=== PATIENT | male | born 1955 | race Caucasian/White ===

== ENCOUNTER → 2016-07-29 | Outpatient (CLI) | payer BC | END | disposition home or self-care (01) | LOC: GMAJ 10:25 | PROVIDERS: ATTEND Family Medicine | DX: Z00.00 Encounter for general adult medical examination without abnormal findings (principal) ==

== ENCOUNTER → 2017-08-12 | Outpatient (CLI) | payer BC | LOC: GMAJ 11:10 | PROVIDERS: ATTEND Family Medicine | DX: Z12.5 Encounter for screening for malignant neoplasm of prostate (principal) ==

== ENCOUNTER → 2017-11-12 | Outpatient (CLI) | payer BC ==
--- NOTE | 2017-11-12 19:21 | RAD ---
EXAM DESCRIPTION: Elbow,Right 3 Views CLINICAL HISTORY: 61 years Male, PAIN IN RIGHT ELBOW COMPARISON: None available. FINDINGS: The visualized bones are well-mineralized.No acute fracture or dislocation. The soft tissues appear grossly unremarkable. IMPRESSION: Grossly normal radiographs of the right elbow. Electronically signed by: Taiwo Wilson MD 11/12/2017 7:20 PM CDT
== END ==
LOC: RAD 08:30
PROVIDERS: ATTEND Orthopaedic Surgery
DX: M25.521 Pain in right elbow (principal)

== ENCOUNTER 2018-02-10 06:07 | Day surgery (SDC) | payer BC ==
[~2018-02-10 06:07] MED LIST: LACTATED RINGERS 1,000 ML ONE
[2018-02-10] MEDS ORDERED: MIDAZOLAM INJ 2 MG/2 ML VIAL ONE (07:47)
[2018-02-10] MEDS ORDERED: LACTATED RINGERS 1,000 ML IVS ONE (09:15)
[2018-02-10 09:35] VITALS: TEMP 98; O2SAT 94
[2018-02-10] MEDS ORDERED: PROPOFOL 200 MG/20 ML VIAL IV ONE (10:00)
--- NOTE | 2018-02-10 10:43 | OP ---
DATE OF PROCEDURE: 02/10/18 PREPROCEDURE DIAGNOSIS: 1. Average risk screening colonoscopy. Last colonoscopy was 10 years ago. POSTPROCEDURE DIAGNOSIS: 1. Colonic polyp. 2. Diverticulosis. 3. Internal hemorrhoids. PROCEDURE: 1. Colonoscopy with snare polypectomy. SURGEON: Lauro Galavn MD. SEDATION: Monitored anesthesia care. ESTIMATED BLOOD LOSS: Less than 5 mL. PROCEDURE: Informed consent was obtained prior to sedation. The preprocedure cardiopulmonary assessment was satisfactory. The patient was brought to the Endoscopy Suite and placed in the left lateral decubitus position. The patient was then sedated by the anesthesia team. Digital rectal and perianal exams were normal. The tip of the Olympus colonoscope was inserted into the rectum and advanced under direct visualization to the terminal ileum. Preparation of the colon was good. Upon reaching the terminal ileum, the endoscope was slowly withdrawn with careful attention paid to the entire colonic mucosa. In the mid transverse colon, there was an area of polypoid tissue. This was about 6 mm in size. This area was resected with cold snare polypectomy and retrieved for pathology. In the sigmoid colon, there were a few scattered diverticula. Retroflexed view of the anal verge showed small, non-bleeding internal hemorrhoids. The endoscope was then withdrawn from the patient and the procedure terminated. RECOMMENDATION: 1. Discharge the patient home with escort. 2. Resume regular diet. 3. Continue present medications. 4. Followup pathology. 5. Repeat colonoscopy in 5 to 10 years based on pathology results. #[id number] MTDD
[2018-02-10 11:59] VITALS: BP 127/74
== END 2018-02-10 11:50 | disposition home or self-care (01) ==
LOC: AMB 06:07
PROVIDERS: ATTEND Internal Medicine Gastroenterology
DX: Z12.11 Encounter for screening for malignant neoplasm of colon (principal); D12.3 Benign neoplasm of transverse colon; K57.30 Diverticulosis of large intestine without perforation or abscess without bleeding; K64.8 Other hemorrhoids; I10 Essential (primary) hypertension; Z88.6 Allergy status to analgesic agent; Z79.899 Other long term (current) drug therapy
CPT/HCPCS: 00812; 45385; J2250; J3490; J7120

== ENCOUNTER → 2018-11-12 | Outpatient (CLI) | payer BC ==
--- NOTE | 2018-11-12 10:23 | RAD ---
PROVIDED CLINICAL HISTORY/REASON FOR EXAM: M25.561,M25.551 Findings: Number of images: Two Location: Pelvis No acute fracture or dislocation. No focal soft tissue swelling. Mild left and moderate right hip osteoarthritis. Sacroiliac joint spaces are maintained. Pelvic phleboliths. IMPRESSION: No evidence of acute osseous abnormality in the pelvis. Electronically signed by: Go Cotter MD 11/12/2018 10:21 AM CDT
--- NOTE | 2018-11-12 10:24 | RAD ---
EXAM DESCRIPTION: Knee,Right Complete CLINICAL HISTORY: 62 years, Male, M25.561,M25.551 COMPARISON: None TECHNIQUE: Four views of the right knee FINDINGS: No acute displaced fracture or dislocation is seen. Moderate tricompartmental knee joint osteoarthrosis is present with joint space narrowing, subchondral sclerosis and marginal osteophyte formation, slightly more pronounced at the medial knee compartment. The joint spacing and alignment of the knee is intact. No significant knee joint effusion. The soft tissues are unremarkable. IMPRESSION: 1. No right knee displaced fracture or dislocation. 2. Moderate right knee osteoarthrosis. Electronically signed by: Aleksandr Capps DO 11/12/2018 10:22 AM CDT
== END ==
LOC: RAD 08:54
PROVIDERS: ATTEND Orthopaedic Surgery
DX: M17.11 Unilateral primary osteoarthritis, right knee (principal); M25.551 Pain in right hip

== ENCOUNTER → 2018-11-29 | Outpatient (CLI) | payer BC ==
--- NOTE | 2018-11-29 11:42 | MRI ---
EXAM DESCRIPTION: Lumbar Spine w/o Contrast : Magnetic Resonance Imaging. CLINICAL HISTORY: RADICULOPATHY COMPARISON: None. TECHNIQUE: Multiplanar, multiple standard sequences, non contrast MRI, lumbar spine. FINDINGS: L5-S1: The disc is well visualized on axial T2 series 501, image 3. Moderate disc space loss more to the left of midline. Moderate endplate reactive changes anterior and to the left of midline. Disc osteophyte complex encroaching on the left foramen and the left L5 nerve. Moderate narrowing right neural foramen. Left posterior lateral disc bulge impressing on the left S1 nerve above the subarticular recess. Mild left paracentral canal narrowing. Minimal bilateral facet hypertrophic arthrosis and posterior flavum ligament thickening. L4-5: Normal signal in the disc with disc space preserved and no bulging. Bilateral hypertrophic facet arthrosis and ligament thickening. AP canal diameter 12 mm. Bilateral moderate foraminal narrowing more on the right. L3-L4: Normal signal in the disc with minimal posterior disc bulge. Hyperintense T2 signal indicating posterior midline annular fissure. Hypertrophic facet arthrosis bilaterally with thickened ligaments. AP canal diameter 12 mm. Bilateral borderline foraminal stenosis. L2-L3: Disc desiccation with anterior and posterior bulging. Mild bilateral hypertrophic facet arthrosis and thickened ligaments. Mild canal narrowing. Posterior left disc protrusion encroaching on the left subarticular recess and the descending left L3 nerve. Bilateral lateral disc bulge and encroachment on the foramina and the bilateral L2 nerveS. Mild to moderate right foraminal narrowing. L1-L2: Normal signal in the disc with disc space preserved. Minimal hypertrophic facet arthrosis and thickening of the ligaments posterior. Canal is patent. Bilateral foramina are patent. T12-L1: Normal signal in the disc with disc space preserved. Posterior elements unremarkable. Canal and foramina are patent. Conus terminates at this level. Anatomic curvature Paravertebral soft tissues negative.. Cord normal signal and caliber. Normal marrow signal in the remaining vertebral bodies and the posterior elements. Vertebral bodies are not compressed at any level. IMPRESSION: 1. Multiple levels of bulging desiccated discs and spondylosis. Multiple levels of hypertrophic facet arthrosis and thickening of the flavum ligaments posterior, with canal narrowing. 2. Moderate spondylosis at L5-S1 more to the left of midline. Left foraminal stenosis and encroachment on the left L5 nerve. Left posterior disc bulge impressing on the left S1 nerve above the left subarticular recess. 3. Bilateral borderline foraminal stenosis from facets and bony margins at L3-L4. 4. Posterior left L2-3 disc protrusion encroaching on the subarticular recess and the descending left L3 nerve. Right lateral disc bulge encroaching on the right L2 nerve in the foramen Electronically signed by: Tyrese Rosas MD 11/29/2018 11:40 AM CDT
== END ==
LOC: MRI 07:01
PROVIDERS: ATTEND Orthopaedic Surgery
DX: M51.16 Intervertebral disc disorders with radiculopathy, lumbar region (principal); M48.062 Spinal stenosis, lumbar region with neurogenic claudication; M47.26 Other spondylosis with radiculopathy, lumbar region; M47.27 Other spondylosis with radiculopathy, lumbosacral region

== ENCOUNTER → 2019-02-03 | Outpatient (CLI) | payer BC | LOC: GMAJ 10:40 | PROVIDERS: ATTEND Family Medicine | DX: N40.1 Benign prostatic hyperplasia with lower urinary tract symptoms (principal); I10 Essential (primary) hypertension ==

== ENCOUNTER → 2019-02-17 | Outpatient (CLI) | payer BC, SELFPAY ==
--- NOTE | 2019-02-17 11:48 | CT ---
EXAM DESCRIPTION: Cardiac Calcium Scoring Screen: Computed Tomography. CLINICAL HISTORY: Coronary Artery Calcium Scoring COMPARISON: None. TECHNIQUE: Spiral-axial scans at 2.5 x 0.4 mm intervals through the coronary arteries without IV contrast. Special algorithm was used, and cardiac gating. No reconstructions. Total Exam DLP: 146.42 mGy-cm. This exam was performed according to our departmental CT dose-optimization program which includes automated exposure control, adjustment of the mA and/or kV according to patient size and/or use of iterative reconstruction technique; to reduce radiation dose to as low as reasonably achievable (ALARA). Some images may have been skipped or repeated due to the heart rhythm or respiration. FINDINGS: The patient has a total Agatston calcium score of 84. This places the patient in the 40th percentile in comparison to a group of patients asymptomatic for coronary artery disease with the same age and gender. This means that 40% of males, ages 61-65 have calcium scores lower than the patient. Majority of the calcium detected in the left main artery. The included mediastinum, bilateral mili, and included reshma-hilar lung shows Pleural-parenchymal scarring also in the inferior lingula.. IMPRESSION: 1. Total coronary artery calcium score of 84. 40th percentile for age and gender. 2. The included mediastinum, lung, and reshma-hilar areas showing minimal pleural-parenchymal scarring.. Electronically signed by: Tyrese Rosas MD 02/17/2019 11:46 AM [facility] [facility]
== END ==
LOC: CT 08:02
PROVIDERS: ATTEND Family Medicine
DX: Z01.818 Encounter for other preprocedural examination (principal); I10 Essential (primary) hypertension

== ENCOUNTER → 2019-03-07 | Outpatient (CLI) | payer BC | LOC: LAB.O 08:10 | PROVIDERS: ATTEND Orthopaedic Surgery | DX: Z01.818 Encounter for other preprocedural examination (principal) ==

== ENCOUNTER 2019-03-15 06:15 | Inpatient (IN) | payer BC ==
[~2019-03-15 06:15] MED LIST changes: +SODIUM CHLORIDE 0.9% 100ML 100 ML IVPB ONE; +SODIUM CHLORIDE 0.9% 250ML 250 ML ONE; +TRANEXAMIC ACID 1,000 MG/10 ML VIAL ONE; +VANCOMYCIN HCL INJ 1,000 MG VIAL IVPB ONE
[2019-03-15] MEDS ORDERED: LACTATED RINGERS 1,000 ML BAG IV ONE (06:28)
[2019-03-15] MEDS ORDERED: SCOPOLAMINE PATCH 1.5MG 1 EA TD ONE ×2 (06:31→06:32)
[2019-03-15] MEDS ORDERED: TRANEXAMIC ACID 1,000 MG/10 ML VIAL IV ONE (06:33)
[2019-03-15] MEDS ORDERED: KETAMINE HCL 100 MG/ML VIAL ONE (06:36)
[2019-03-15] MEDS ORDERED: ACETAMINOPHEN IV 1000MG 100 ML ONE (06:36)
[2019-03-15] MEDS ORDERED: MIDAZOLAM INJ 5 MG/5 ML VIAL ONE (06:36)
[2019-03-15] MEDS ORDERED: HYDROmorphone HCL INJ 2 MG/ML VIAL ONE (06:36)
[2019-03-15] MEDS ORDERED: fentaNYL CITRATE INJ 50 MCG/ML AMP ONE (06:36)
[2019-03-15] MEDS ORDERED: ceFAZolin SODIUM 2 GRAMS PREMI 50 ML IVPB ONE (07:00)
[2019-03-15] MEDS ORDERED: TRANEXAMIC ACID 1,000 MG/10 ML VIAL ONE (07:26)
[2019-03-15] MEDS: BUPIVACAINE 0.5% 30 ML VIAL INJ ONE ×2 (07:46→08:35)
[2019-03-15] MEDS: ceFAZolin SODIUM 1 GM VIAL ONE ×3 (07:46→09:00)
[2019-03-15] MEDS: BUPIVACAINE LIPOSOME 13.3 MG/ML VIAL INJ ONE ×2 (07:46→08:35)
[2019-03-15] MEDS: VANCOMYCIN HCL INJ 1,000 MG VIAL IVPB ONE ×2 (07:47→09:00)
[2019-03-15] MEDS ORDERED: ELECTROLYTE-A 1,000 ML IVS ONE (09:11)
[2019-03-15] MEDS ORDERED: ALUMINUM & MAGNESIUM HYDROXIDE 30 ML UD PO PRN (09:33)
[2019-03-15] MEDS ORDERED: ZOLPIDEM TARTRATE 5 MG TAB PO PRN (09:33)
[2019-03-15] MEDS ORDERED: ACETAMINOPHEN 325 MG TAB PO PRN (09:33)
[2019-03-15] MEDS ORDERED: ONDANSETRON INJ 4 MG/2 ML VIAL IV PRN (09:33)
[2019-03-15] MEDS ORDERED: PROMETHAZINE HCL INJ 25 MG in SODIUM CHLORIDE 0.9% 50ML 50 ML IVPB PRN (09:33)
[2019-03-15] MEDS ORDERED: PROMETHAZINE HCL INJ 12.5 MG in SODIUM CHLORIDE 0.9% 50ML 50 ML IVPB PRN (09:33)
[2019-03-15] MEDS ORDERED: TRANEXAMIC ACID INJ 1,000 MG in SODIUM CHLORIDE 0.9% 100ML 100 ML IVPB ONE (09:33)
[2019-03-15] MEDS ORDERED: BISACODYL SUPPOSITORY 10 MG PR PRN (09:33)
[2019-03-15] MEDS ORDERED: MORPHINE SULFATE INJ 10 MG/ML VIAL IV PRN (09:33)
[2019-03-15] MEDS ORDERED: SODIUM CHLORIDE 0.9% (FLUSH) 10 ML SYG IV PRN (09:33)
[2019-03-15] MEDS ORDERED: MORPHINE SULFATE INJ 10 MG/ML VIAL IM PRN (09:33)
[2019-03-15] MEDS ORDERED: ACETAMINOPHEN 500 MG TAB PO PRN (09:33)
[2019-03-15] MEDS ORDERED: NALOXONE HCL INJ 0.4 MG/ML VIAL IV PRN (09:33)
[2019-03-15] MEDS ORDERED: BENZOCAINE-MENTH LOZ (CEPACOL) 1 EA LOZ MT PRN (09:33)
[2019-03-15] MEDS ORDERED: MAGNESIUM HYDROXIDE 30 ML UD PO PRN (09:33)
--- NOTE | 2019-03-15 09:37 | OP ---
DATE OF PROCEDURE: 03/15/19 PREOPERATIVE DIAGNOSIS: 1. Right knee osteoarthritis. POSTOPERATIVE DIAGNOSIS: 1. Right knee osteoarthritis. PROCEDURE: 1. Total knee arthroplasty. SURGEON: Loc Obregon MD. PELT DROPPER: Tyrese Roberto CST, SA-C. ANESTHESIA: General anesthesia. COMPLICATIONS: None. FINDINGS: Severe osteoarthritis of the knee. INDICATION: Mr. Hoffman has a long history of knee arthritis. He has undergone contralateral total knee arthroplasty. He has requested right knee arthroplasty. After discussing the risks, benefits and alternatives to that, the patient has given informed consent for total knee arthroplasty. PROCEDURE: The patient was brought to the Operating Room and placed in supine position. General anesthesia was induced and the patient's leg was sterilely prepped and draped. Following prepping and draping, the distal femur was exposed and using an intramedullary guide, the distal femoral cut was made. The appropriate sized cutting block was measured, pinned into place, and the anterior, posterior, and chamfer cuts were made. The ACL was transected and the tibia was subluxed. Both the medial and lateral menisci were removed. An intramedullary guide was used to make the proximal tibial cut. The appropriate sized base plate was placed and a trial polyethylene was placed. The trial femur was placed, the knee was reduced, and the knee was taken through a range of motion. The knee was stable in anterior, posterior, varus and valgus stress. The patella tracked anatomically without evidence of subluxation or dislocation. After trialing, the trial components were removed and the bony surfaces were thoroughly irrigated with saline. Following irrigation, the surfaces were dried and the final components were cemented into place. The excess cement was removed and the remaining cement was allowed to cure. The knee was again taken through a range of motion to confirm stability. The wound was then irrigated with saline and closure was performed using PDS to approximate the arthrotomy followed by closure of the subcutaneous tissues with a combination of running and interrupted Monocryl sutures. Sterile dressing was placed. The patient was awoken from anesthesia and taken to Recovery. COMPONENTS: César Triathlon knee, size 7 femur, size 7 tibia, 11 mm insert. POSTOPERATIVE PLAN: The patient will be weight-bearing as tolerated on postoperative day 1. #[id number] MTDD
[2019-03-15] MEDS ORDERED: SODIUM CHLORIDE 0.9% 50 ML VIAL INJ ONE (10:00)
[2019-03-15] MEDS ORDERED: PROPOFOL 200 MG/20 ML VIAL IV ONE (10:00)
[2019-03-15] MEDS ORDERED: MAGNESIUM SULFATE INJ 1 GM/2 ML VIAL IVPB ONE (10:00)
[2019-03-15] MEDS ORDERED: IV SET AND CAP CHANGE INJ INJ SCH (10:00)
[2019-03-15] MEDS ORDERED: EPINEPHrine INJ 0.1 MG/ML 10 ML SYG IV ONE (10:00)
[2019-03-15] MEDS ORDERED: MORPHINE PCA 1 MG/ML 100 ML BAG IVPB SCH (10:00)
[2019-03-15] MEDS ORDERED: raNITIdine HCL INJ 25 MG/ML VIAL IV ONE (10:00)
[2019-03-15] MEDS ORDERED: DEXAMETHASONE INJ 10 MG/ML VIAL IV ONE (10:00)
[2019-03-15] MEDS ORDERED: MORPHINE PCA 1 MG/ML 100 ML BAG IVPB ONE (10:13)
--- NOTE | 2019-03-15 11:59 | RAD ---
Frontal and lateral views of the right knee. Indication: TKA Impression: Postsurgical changes of right total knee arthroplasty and patellar resurfacing noted with associated postsurgical changes of the soft tissues. No complicating features identified. Electronically signed by: Cody Garcia MD 03/15/2019 11:57 AM [facility]
[2019-03-15] MEDS ORDERED: diphenhydrAMINE HCL 50 MG/ML VIAL ONE (12:12)
--- NOTE | 2019-03-15 13:22 | CONS ---
SUPERVISING PHYSICIAN: Francois Guevara MD REASON FOR CONSULTATION: Medical management postoperative right total knee replacement. HISTORY OF PRESENT ILLNESS: Mr. Hoffman is a 63-year-old male patient that has a longstanding history of right knee osteoarthritis with severe pain. He has had multiple attempts with outpatient conservative treatment measures. He has failed to respond to any outpatient measures to have any improvement in his symptoms. He therefore requested an elective total knee arthroplasty for symptom control. The patient was admitted for elective right total knee arthroplasty today. He had no intraoperative complications and was seen in the immediate postoperative state in stable condition. PAST MEDICAL HISTORY: 1. Osteoarthritis affecting the knees. 2. Hypertension. 3. Gastroesophageal reflux disease. 4. Recurrent urinary tract infections. 5. Chronic insomnia. PAST SURGICAL HISTORY: 1. Previous left total knee replacement in 2011. 2. Fracture with repair of the mandible with open reduction internal fixation. HOME MEDICATIONS: 1. Metoprolol succinate 50 mg at bedtime. 2. Tylenol 500 mg p.r.n. 3. Celebrex 1 capsule daily. 4. Trazodone 1 tablet daily. 5. Zolpidem 1 tablet daily. ALLERGIES: DB INHIBITORS, HYDROCODONE, STATINS. FAMILY HISTORY: Both mother and father from emphysema complications. He has one brother who has prostate cancer. He has one daughter who has history of lung cancer. SOCIAL HISTORY: The patient is employed in the [employer] industry. He is . He lives in [place], [place]. He has 3 children. He has never smoked and does not use alcohol or illicit drugs. REVIEW OF SYSTEMS: CONSTITUTIONAL: Negative for any fevers, chills, general malaise, unexplained weight loss or gain. HEENT: Negative for sore throats, earaches, nasal congestion, headaches, vision changes. RESPIRATORY: Denies coughing, wheezing, shortness of breath. CARDIOVASCULAR: Negative for chest pain, palpitations or syncopal episodes. GASTROINTESTINAL: Negative for nausea, vomiting, diarrhea, constipation or abdominal pain. GENITOURINARY: Negative for hematuria, polyuria. MUSCULOSKELETAL: As noted in history of present illness, generalized arthralgias, joint pain, back pain. NEUROLOGIC: Denies headaches, vision changes, syncopal episodes. He does have some chronic insomnia and some difficulty with chronic hearing loss. No ataxia or seizures. SKINS: Denies lesions, rashes, moles or unexplained changes. HEMATOLOGIC: Denies easy bruising, bleeding or transfusion reactions. PHYSICAL EXAMINATION: VITAL SIGNS: Temperature 97.6. Pulse 68. Blood pressure 121/75. Respirations 12. Saturation 99% on 2 liters nasal cannula. GENERAL: The patient is resting comfortably. He is alert, vising with family members. He appears to be in no acute distress. HEENT: Tympanic membranes clear bilaterally. Oropharynx is pink, moist without any lesions. NECK: Supple, nontender with full range of motion. No jugular venous distention noted. RESPIRATORY: Lungs clear to auscultation bilaterally without any rhonchi, wheezes or rales. CARDIOVASCULAR: Regular rate and rhythm without any appreciable murmurs, gallops, or rubs. ABDOMEN: Soft, nontender with hypoactive bowel sounds. EXTREMITIES: The right knee has a bulky Db bandage in place with an Iceman. Capillary refill is brisk with strong pulses bilaterally. NEUROLOGIC: The patient is alert and oriented times three. Cranial nerves II- XII are grossly intact. LABORATORY: Postoperative hemoglobin and hematocrit are pending. ASSESSMENT: 1. Immediate postoperative day 0 for a right total knee arthroplasty with a history of osteoarthritis failing outpatient treatment measures with surgery performed by Dr. Loc Obregon. 2. History of hypertension. 3. Chronic gastroesophageal reflux disease. 4. History of recurrent urinary tract infections. 5. Chronic insomnia. PLAN: We will follow Julio César as he continues with his postoperative recovery with physical therapy and rehabilitation efforts. I will resume his home medications once these have been updated and verified as appropriate to care. He will be on DVT prophylaxis per protocol. We will refer further postoperative surgical management to orthopedic services with Dr. Loc Obregon and physical therapy. I anticipate his length of stay to be at least 2 days with discharging possibly on . Tentative outpatient management plans are through [facility]. Until the patient can transition to outpatient management, we will continue to monitor and treat as needed. #[id number] [facility]
--- NOTE | 2019-03-15 13:57 | RAD ---
EXAM DESCRIPTION: Fluoroscopy Up to 1Hr CLINICAL HISTORY: RIGHT TKA COMPARISON: 12 November 2018 TECHNIQUE: Fluoroscopy time is 0.7 seconds, dose is 0.07 mGy, one spot film. FINDINGS: Exam demonstrates placement of a right total knee arthroplasty. IMPRESSION: Right total knee arthroplasty Electronically signed by: Jeronimo Morales MD 03/15/2019 1:55 PM [facility]
[2019-03-15] MEDS: diphenhydrAMINE HCL 50 MG/ML VIAL IV PRN (14:15)
[2019-03-15] MEDS ORDERED: SODIUM CHLORIDE 0.9% 100ML 100 ML IVPB ONE ×2 (15:29→19:25)
[2019-03-15] MEDS ORDERED: ceFAZolin SODIUM 1 GM VIAL ONE ×2 (15:29→19:25)
[2019-03-15] MEDS: ceFAZolin SODIUM 2 GM in SODIUM CHLORIDE 0.9% 100ML 100 ML IVPB SCH ×2 (15:38→23:00)
[2019-03-15] MEDS: CELECOXIB 100 MG CAP PO SCH (16:21)
[2019-03-15] MEDS ORDERED: SODIUM CHLORIDE 0.9% 250ML 250 ML ONE ×2 (18:08→19:24)
[2019-03-15] MEDS ORDERED: VANCOMYCIN HCL INJ 1,000 MG VIAL IVPB ONE ×2 (18:08→19:25)
[2019-03-15] MEDS: DEX 5% W/NACL 0.45% 1000ML 1,000 ML IVS PRN (18:15)
[2019-03-15] MEDS: VANCOMYCIN HCL INJ 1,000 MG in SODIUM CHLORIDE 0.9% 250ML 250 ML IVPB SCH (18:21)
[2019-03-15] MEDS ORDERED: ENOXAPARIN SODIUM 30 MG/0.3 ML SYG SUBCU ONE (19:24)
[2019-03-15] MEDS: DOCUSATE CALCIUM 240 MG CAP PO SCH (20:44)
[2019-03-15] MEDS: TEMAZEPAM 15 MG CAP PO PRN ×2 (21:39→23:00)
[2019-03-15] MEDS: ENOXAPARIN SODIUM 30 MG/0.3 ML SYG SUBCU SCH (22:43)
[2019-03-16] MEDS: traMADol HCL 50 MG TAB PO PRN ×3 (02:48→13:34)
[2019-03-16] MEDS: CYCLOBENZAPRINE HCL 10 MG TAB PO PRN ×2 (02:48→13:34)
[2019-03-16] MEDS: VANCOMYCIN HCL INJ 1,000 MG in SODIUM CHLORIDE 0.9% 250ML 250 ML IVPB SCH (06:06)
[2019-03-16] MEDS ORDERED: SODIUM CHLORIDE 0.9% 100ML 100 ML IVPB ONE (07:48)
[2019-03-16] MEDS ORDERED: ceFAZolin SODIUM 1 GM VIAL ONE (07:49)
[2019-03-16] MEDS: CELECOXIB 100 MG CAP PO SCH ×2 (07:57→17:40)
[2019-03-16] MEDS: diphenhydrAMINE HCL 50 MG/ML VIAL IV PRN ×2 (08:07→14:42)
[2019-03-16] MEDS: ceFAZolin SODIUM 2 GM in SODIUM CHLORIDE 0.9% 100ML 100 ML IVPB SCH (08:09)
[2019-03-16] MEDS: MAGNESIUM OXIDE 400 MG TAB PO SCH (08:45)
[2019-03-16] MEDS ORDERED: ACETAMINOPHEN W/ COD #4 TAB 1EA TAB ONE (10:24)
[2019-03-16] MEDS: ACETAMINOPHEN W/ COD #4 TAB 1EA TAB PO PRN ×2 (10:28→17:41)
--- NOTE | 2019-03-16 11:13 | PN ---
SUPERVISING PHYSICIAN: Francois Guevara MD DATE: 03/16/19 SUBJECTIVE: The patient is sitting up in his chair. His is at the bedside. He felt that his physical therapy went well. We discussed his oral pain medications. We will adjust those as necessary. Otherwise, he denies any chest pain, nausea or vomiting. OBJECTIVE: VITAL SIGNS: Temperature 97.5. Heart rate 71. Blood pressure 115/73. Respiratory rate 18. O2 saturation 95% on 1.5 liters nasal cannula. RESPIRATORY: Essentially clear to auscultation bilaterally. CARDIAC: Regular rate and rhythm. GASTROINTESTINAL: Abdomen is soft, nondistended, nontender. Bowel sounds are positive. EXTREMITIES: He has an Db bandage to his right knee. It is dry and intact. Bilateral pedal pulses are palpable at +2. NEUROLOGIC: Awake, alert and oriented times three. LABORATORY: Hemoglobin 13.4, hematocrit 40.1. All other labs and films have been reviewed via the EMR. ASSESSMENT: 1. Postoperative day 1 for a right total knee arthroplasty with a history of severe osteoarthritis failing outpatient treatment with surgery performed by Dr. Loc Obregon, orthopedic surgeon. 2. Hypertension. 3. Gastroesophageal reflux disease. 4. History of recurrent urinary tract infections. 5. Chronic insomnia. PLAN: We will continue present supportive care. Orthopedic issues will be per Dr. Obregon. He will continue with his physical therapy for strengthening and conditioning. He will be discharged tomorrow or the next day and will have outpatient physical therapy. He has an adverse reaction to hydrocodone and we will start him on tramadol for pain. If that does not work, we will switch him to Tylenol #4. We will monitor his pain level closely. We will continue to monitor the patient closely and follow as needed. [facility][id number] [facility]
[2019-03-16] MEDS: ENOXAPARIN SODIUM 30 MG/0.3 ML SYG SUBCU SCH ×2 (11:35→22:42)
--- NOTE | 2019-03-16 13:04 | PN ---
DATE: 03/16/19 SUBJECTIVE: Mr. Hoffman is doing well. He is up to a chair and he is eating and his leg is bent 90 degrees. OBJECTIVE: Afebrile. Vital signs stable. Dressing is clean, dry and intact. ASSESSMENT: Status post total knee arthroplasty. PLAN: The plan is to continue with weightbearing as tolerated. #[id number] MTDD
[2019-03-16] MEDS: DEX 5% W/NACL 0.45% 1000ML 1,000 ML IVS PRN (20:10)
[2019-03-16] MEDS: DOCUSATE CALCIUM 240 MG CAP PO SCH (20:10)
[2019-03-17] MEDS: ACETAMINOPHEN W/ COD #4 TAB 1EA TAB PO PRN ×2 (05:49→10:21)
[2019-03-17] MEDS: CYCLOBENZAPRINE HCL 10 MG TAB PO PRN (07:51)
[2019-03-17] MEDS: CELECOXIB 100 MG CAP PO SCH (07:51)
[2019-03-17] MEDS: MAGNESIUM OXIDE 400 MG TAB PO SCH (08:33)
[2019-03-17] MEDS: traMADol HCL 50 MG TAB PO PRN (08:33)
[2019-03-17] MEDS ORDERED: SODIUM CHLORIDE 0.9% (FLUSH) 10 ML SYG IV SCH (09:00)
[2019-03-17] MEDS: ENOXAPARIN SODIUM 30 MG/0.3 ML SYG SUBCU SCH (10:21)
[2019-03-17 13:44] VITALS: BP 126/79; TEMP 97.6; O2SAT 93
[2019-03-18] MEDS ORDERED: BISACODYL SUPPOSITORY 10 MG PR ONE (21:00)
[2019-03-18] MEDS ORDERED: MAGNESIUM HYDROXIDE 30 ML UD PO ONE (21:00)
--- NOTE | 2019-03-21 10:14 | DS ---
SUPERVISING PHYSICIAN: Francois Guevara MD DISCHARGE DIAGNOSIS: 1. Postoperative day 2 for a right total knee arthroplasty performed by Dr. Loc Obregon, orthopedic surgeon. He has a history of severe osteoarthritis failing outpatient treatment. 2. Hypertension. 3. Gastroesophageal reflux disease. 4. History of recurrent urinary tract infections. 5. Chronic insomnia. HISTORY OF PRESENT ILLNESS: This is a 63-year-old male patient that has a longstanding history of right knee osteoarthritis with severe pain. He has had multiple attempts with outpatient conservative treatment measures. He has failed to respond to any of these outpatient measures to improve his symptoms. He requested Dr. Loc Obregon for an elective total knee arthroplasty. The patient was admitted to the hospital for his surgical intervention. There were no intraoperative complications and was seen in the immediate postoperative state in stable condition in the hospital. HOSPITAL COURSE: They day after surgery, he started his physical therapy for strengthening and conditioning. His IV medications were changed to oral pain medications. Initially, he was on tramadol with minimal pain symptom control and was changed to Tylenol #4. His pain was well controlled with the Tylenol #4. He met his physical therapy goals and he will be discharged home today with followup treatment at the [facility] with [facility]'s physical therapy department. LABORATORY: Hemoglobin 13.4, hematocrit 40.1. UDS was negative. RADIOLOGY: Reports are per the EMR. DISCHARGE PLAN: The patient will be discharged home in stable condition. He is to resume his previous diet and increase his activity as instructed by Physical Therapy. He is to resume his home medications as well as I have given him Tylenol #4, cyclobenzaprine and 9 days of Xarelto. He has an appointment with [facility]'s physical therapy department on 03/18/19 at 9 AM. He is to return to the hospital or followup with Dr. Obregon for any problems or complications. He is to also have his followup appointment with Dr. Obregon as instructed or call his office for an appointment. DISCHARGE MEDICATIONS: 1. Zolpidem. 2. Trazodone. 3. Celebrex. 4. Acetaminophen. 5. Metoprolol. 6. Cyclobenzaprine. 7. Xarelto. 8. Acetaminophen with codeine. #[id number] [facility]
== END 2019-03-17 13:20 | disposition home or self-care (01) | DRG 470 ==
LOC: AMB 06:15 → MS 10:40
PROVIDERS: ADMIT Orthopaedic Surgery; ATTEND Nurse Practitioner Acute Care
PROC: 0SRC0J9 Replacement of Right Knee Joint with Synthetic Substitute, Cemented, Open Approach (ICD-10-PCS; principal; 2019-03-15 06:52)
DX: M17.11 Unilateral primary osteoarthritis, right knee (principal); I10 Essential (primary) hypertension; K21.9 Gastro-esophageal reflux disease without esophagitis; G47.00 Insomnia, unspecified; Z87.440 Personal history of urinary (tract) infections; Z79.1 Long term (current) use of non-steroidal anti-inflammatories (NSAID); Z88.5 Allergy status to narcotic agent; Z88.8 Allergy status to other drugs, medicaments and biological substances; Z79.899 Other long term (current) drug therapy; Z96.652 Presence of left artificial knee joint

== ENCOUNTER → 2020-04-18 | Outpatient (CLI) | payer MEDICARE, BC | LOC: LAB.O 15:27 | PROVIDERS: ATTEND Urology | DX: E29.1 Testicular hypofunction (principal) ==